=== PATIENT | female | born 1980 | race Caucasian/White ===

== ENCOUNTER 2016-10-26 21:30 | Emergency (ER) | payer OTHER ==
[~2016-10-26] VITALS: Ht 157.5 cm; Wt 73.0 kg
[~2016-10-26 21:30] MED LIST: ADDE20 PO; ALPR1TAB3 PO; SERT-129 PO
[2016-10-26 21:35] VITALS: BP 140/66; PULSE 61; RESP 16; TEMP 98.1; O2SAT 98
[2016-10-26] MEDS ORDERED: IBUP800T23 PO (21:50)
--- NOTE | 2016-10-26 22:12 | PD ---
HPI Chief Complaint: Headache Time Seen by Provider: 21:57 Travel History International Travel<30 days: No Contact w/Intl Traveler<30days: No Traveled to known affect area: No History of Present Illness HPI The patient is a 36-year-old female who complains of a gradual onset of left- sided headache beginning 4 days ago. She may have had a headache similar to this but simply does not remember. She states she gets a lot of menstrual headaches around her menstrual period but her menstrual period is over about a week now. She does have photophobia/phonophobia and some smells irritate her as well. She states she cannot be because she has had a tubal ligation. She does have nausea associated with the headache but no vomiting. She denies any focal neurologic change. PFS Past Medical History Anxiety: Yes Depression: Yes Medical other: Yes (TMJ) Immunizations Current: Yes Tetanus Vaccination: Unknown Influenza Vaccination: Yes ?: Not Tubal Ligation: Yes Past Surgical History Oral Surgery: Yes (WISDOM) Social History Alcohol Use: No Tobacco Use: No Substance Use: No Allergies-Medications (Allergen,Severity, Reaction): Coded Allergies: No Known Allergies (Verified , 10/26/16) Reported Meds & Prescriptions Reported Meds & Active Scripts Active Sertraline (Sertraline HCl) 100 Mg Tab 100 Mg PO DAILY Reported Ibuprofen 800 Mg Tab 800 Mg PO Q8H PRN Review of Systems Except as stated in HPI: all other systems reviewed are Neg Physical Exam Narrative GENERAL: The patient is alert, oriented 3 and moderate apparent distress with her left-sided headache. Her vital signs are normal. SKIN: Focused skin assessment warm/dry. HEAD: Atraumatic. Normocephalic. EYES: Pupils equal and round. No scleral icterus. No injection or drainage. The disks are sharp and venous pulsations are seen in the upright position. ENT: No nasal bleeding or discharge. Mucous membranes pink and moist. NECK: Trachea midline. No JVD. There is no meningismus present. CARDIOVASCULAR: Regular rate and rhythm. No murmur appreciated. RESPIRATORY: No accessory muscle use. Clear to auscultation. Breath sounds equal bilaterally. GASTROINTESTINAL: Abdomen soft, non-tender, nondistended. Hepatic and splenic margins not palpable. MUSCULOSKELETAL: No obvious deformities. No clubbing. No cyanosis. No edema. NEUROLOGICAL: Awake and alert. No obvious cranial nerve deficits. Motor grossly within normal limits. Normal speech. PSYCHIATRIC: Appropriate mood and affect; insight and judgment normal. Data Data Last Documented VS Vital Signs Date Time Temp Pulse Resp B/P Pulse Ox O2 Delivery O2 Flow Rate FiO2 10/26/16 23:24 16 10/26/16 23:20 55 110/69 99 10/26/16 23:19 Room Air 10/26/16 21:35 98.1 Orders Prochlorperazine Inj (Compazine Inj) (10/26/16 22:15) Sumatriptan Inj (Imitrex Inj) (10/26/16 22:15) Ecg Monitoring (10/26/16 22:50) Iv Access Insert/Monitor (10/26/16 22:50) Oximetry (10/26/16 22:50) Sodium Chloride 0.9% Flush (Ns Flush) (10/26/16 23:00) Ketorolac Inj (Toradol Inj) (10/26/16 23:00) Diphenhydramine Inj (Benadryl Inj) (10/26/16 23:00) Morphine Inj (Morphine Inj) (10/26/16 23:00) Sodium Chlor 0.9% 1000 Ml Inj (Ns 1000 M (10/26/16 23:00) MDM Medical Decision Making Medical Screen Exam Complete: Yes Emergency Medical Condition: Yes Medical Record Reviewed: Yes Differential Diagnosis Migraine headache, tension headache, cluster headache, normal pressure hydrocephalusunlikely, subarachnoid hemorrhageextremely unlikely Narrative Course It is now 10:49 PM and the patient states her nausea is improved but her headache has not after this shot of Imitrex/Compazine. It is now 11:36 PM and the patient states her headache is a 2/10. She no longer has any nausea and wants to go home. Because of the left-sided gradual onset headache associated with photophobia/photophobia this appears to be a migraine headache. The patient probably had episodes in the past but she has so many headaches associated with her period is hard to exactly remember them. Impression: Migraine headache Plan: The patient will be given Fioricet and Compazine for her headache and nausea. She should follow-up with a primary care physician next week. Diagnosis Primary Impression: Migraine headache Additional Instructions: Both the Compazine and the Fioricet may help the headache. Follow-up with your primary care physician next week. Med/Other Pt SpecificInfo: Prescription(s) given Scripts Prochlorperazine Maleate 10 Mg Tab10 Mg PO Q6H PRN (NAUSEA OR VOMITING) #20 TAB Ref 0 Prov:Trent Jurado MD 10/26/16 Icqfnbngsa-Akfvmhociqfpb-Ounltyzt (Fioricet)50-300-40 Mg Cap1-2 Cap PO Q6H PRN ( HEADACHE) #30 CAP Ref 0 Prov:Trent Jurado MD 10/26/16 Disposition: 01 DISCHARGE HOME Condition: Stable Trent Jurado MD Oct 26, 2016 22:12
[2016-10-26] MEDS ORDERED: PROCHLORPERAZINE INJ 10 MG/2 ML VIAL IM ONE (22:15)
[2016-10-26] MEDS ORDERED: SUMAtriptan INJ 6 MG/0.5 ML VIAL SQ ONE (22:15)
[2016-10-26] MEDS ORDERED: MORPHINE SULFATE 8 MG/ML INJ IV PUSH ONE (23:00)
[2016-10-26] MEDS ORDERED: SODIUM CHLORIDE 0.9% FLUSH 10 ML FLUSH IVF PRN (23:00)
[2016-10-26] MEDS ORDERED: KETOROLAC TROMETHAMINE 30 MG/ML (IVP) VIAL IVP ONE (23:00)
[2016-10-26] MEDS ORDERED: diphenhydrAMINE HCL 50 MG/ML VIAL IVP ONE (23:00)
[2016-10-26] MEDS ORDERED: SODIUM CHLOR 0.9% 1000 ML INJ 1,000 ML IV SCH (23:00)
[2016-10-26 23:19] VITALS: O2SAT 99
[2016-10-26 23:20] VITALS: BP 110/69; PULSE 55; RESP 16; O2SAT 99
[2016-10-26 23:24] VITALS: RESP 16
[2016-10-26] MEDS ORDERED: PROC10TA PO (23:41)
[2016-10-26] MEDS ORDERED: BUTA1CAP PO (23:41)
[2016-10-26 23:54] VITALS: BP 116/54
[2016-11-05] MEDS ORDERED: ALPR1TAB3 PO (14:36)
[2016-11-05] MEDS ORDERED: ADDE20 PO (14:37)
[2016-11-07] MEDS ORDERED: ADDE20 PO (13:52)
== END 2016-10-27 | disposition home or self-care (01) ==
LOC: PHED 21:30
DX: G43.909 Migraine, unspecified, not intractable, without status migrainosus (principal); Z86.59 Personal history of other mental and behavioral disorders; Z87.39 Personal history of other diseases of the musculoskeletal system and connective tissue
CPT/HCPCS: 96361; 96372; 96374; 96375; 99284; J0780; J1200; J1885; J2270; J3030; J7030